=== PATIENT | female | born 1950 | race Asian ===

== ENCOUNTER 2021-12-22 12:18 | Emergency (ER) | payer MEDICARE, OTHER ==
[~2021-12-22] VITALS: Ht 154.9 cm; Wt 63.6 kg
[~2021-12-22 12:18] MED LIST: ASPI-556 PO; HYDR12.530 PO; METF-81 PO; OLME20TA10 PO; SIMV10TA97 PO
[2021-12-22 12:21] VITALS: BP 148/74
[2021-12-22] MEDS ORDERED: INSLAN SQ (12:40)
[2021-12-22] MEDS ORDERED: ATOR20TA86 PO (12:40)
[2021-12-22] MEDS ORDERED: LISI-894 PO (12:40)
[2021-12-22] MEDS ORDERED: DULA0.75 SQ (12:40)
[2021-12-22] MEDS ORDERED: GLIP10TA10 PO (12:40)
== END 2021-12-22 13:00 | disposition home or self-care (01) ==
LOC: EMS 12:19
DX: R51.9 Headache, unspecified (principal); I10 Essential (primary) hypertension; E11.9 Type 2 diabetes mellitus without complications; E78.00 Pure hypercholesterolemia, unspecified; Z79.4 Long term (current) use of insulin; Z79.899 Other long term (current) drug therapy
CPT/HCPCS: 99281; Z7502